=== PATIENT | female | born 1975 | race Caucasian/White ===

== ENCOUNTER → 2019-03-21 | Outpatient (CLI) | payer OTHER ==
--- NOTE | 2019-03-22 13:24 | MM ---
Reason for exam: screening (asymptomatic). Last mammogram was performed 8 years and 11 months ago. History: Saline implants in both breasts, 2007. Took hormonal contraceptives for 6 months beginning at age 35. Physical Findings: A clinical breast exam by your physician is recommended on an annual basis and results should be correlated with mammographic findings. MG 3D Screen Mammo Imp/Cad Bilateral CC, MLO, and ID view(s) were taken. Prior study comparison: May 01, 2010, CAD bilateral diagnostic mammogram. The breast tissue is extremely dense which could obscure a lesion on mammography. No suspicious abnormality. Bilateral saline implants noted. No significant changes when compared with prior studies. ASSESSMENT: Negative, BI-RAD 1 RECOMMENDATION: Routine screening mammogram of both breasts in 1 year.
== END | disposition home or self-care (01) ==
LOC: RADMAMWWP 13:05
PROVIDERS: ATTEND Obstetrics & Gynecology
DX: Z12.31 Encounter for screening mammogram for malignant neoplasm of breast (principal)
CPT/HCPCS: 77063; 77067

== ENCOUNTER 2019-04-18 06:38 | Emergency (ER) | payer OTHER ==
[2019-04-18] MEDS ORDERED: ASPIRIN 81 MG PO STA (06:47)
[2019-04-18] MEDS ORDERED: KETOROLAC 30 MG/ML 1 ML VIAL IVP STA (07:00)
--- NOTE | 2019-04-18 07:02 | ED ---
Chest Pain HPI - General Chief Complaint: Chest Pain Stated Complaint: Chest pain/Left shoulder pain Time Seen by Provider: 04/18/19 06:46 Source: patient, RN notes reviewed Mode of arrival: ambulatory Limitations: no limitations - History of Present Illness Initial Comments: 44-year-old female presents emergency Department chief complaint of left should er left arm and left-sided chest pain. She does admit that she's had left-sided arm pain and shoulder pain for last 10-14 days. Patient states though earlier this morning/late last night she's developed sided chest pain. She states that she cannot get comfortable. She had a pressure on her left-sided chest and some sharp stabbing type pain. Patient denies any significant cardiac history. Pat ient denies any history of hypertension, hyperlipidemia, diabetes. Patient denies any known trauma. - Related Data Home Medications Medication Instructions Recorded Confirmed Biotin 5 mg PO DAILY 04/18/19 04/18/19 Previous Rx's Medication Instructions Recorded Cyclobenzaprine [Flexeril] 5 mg PO TID PRN #15 tablet 04/18/19 Allergies Allergy/AdvReac Type Severity Reaction Status Date / Time No Known Allergies Allergy Verified 04/18/19 08:11 Review of Systems ROS Statement: Those systems with pertinent positive or pertinent negative responses have been documented in the HPI. ROS Other: All systems not noted in ROS Statement are negative. EKG Findings - EKG Comments: EKG Findings:: EKG performed at 6:51 sinus bradycardia with short VA rate of 56 VA interval 106 QRS 96 QT/QTC 426/411 Past Medical History Past Medical History: No Reported History Additional Past Medical History / Comment(s): Patient has a history of IBS, History of Any Multi-Drug Resistant Organisms: None Reported Past Surgical History: Appendectomy Additional Past Surgical History / Comment(s): BREAST AUGMENTATION, REPAIR OF FRACTURE RIGHT ORBITAL, D&C for elective . Past Anesthesia/Blood Transfusion Reactions: No Reported Reaction Past Psychological History: No Psychological Hx Reported Smoking Status: Former smoker Past Alcohol Use History: Rare Past Drug Use History: None Reported - Past Family History Father Family Medical History: No Reported History General Exam Limitations: no limitations General appearance: alert, in no apparent distress Head exam: Present: atraumatic, normocephalic, normal inspection Eye exam: Present: normal appearance, PERRL, EOMI. Absent: scleral icterus, conjunctival injection, periorbital swelling ENT exam: Present: normal exam, normal oropharynx, mucous membranes moist Neck exam: Present: normal inspection, full ROM. Absent: tenderness, meningismus, lymphadenopathy Respiratory exam: Present: normal lung sounds bilaterally. Absent: respiratory distress, wheezes, rales, rhonchi, stridor, chest wall tenderness Cardiovascular Exam: Present: regular rate, normal rhythm, normal heart sounds. Absent: systolic murmur, diastolic murmur, rubs, gallop, clicks GI/Abdominal exam: Present: soft, normal bowel sounds. Absent: distended, tenderness, guarding, rebound, rigid Extremities exam: Present: other (Tenderness on the left scapula, neurovascular intact upper extremities and lower extremities) Neurological exam: Present: alert, oriented X3, CN II-XII intact Skin exam: Present: warm, dry, intact, normal color. Absent: rash Course Vital Signs 04/18/19 04/18/19 04/18/19 06:43 06:56 08:19 Temperature 98.0 F Pulse Rate 60 60 Pulse Rate [ 62 Devulcanizer Tender ] Respiratory 18 16 Rate Blood Pressure 112/59 110/68 O2 Sat by Pulse 100 98 Oximetry Chest Pain MDM - MDM Labs, EKG and chest x-ray unremarkable. This is reproducible pain this time. 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 Her chest pain is not pleuritic or cardiac in nature at this time. Patient did state that she had improvement with Norflex. Patient discharged at this time with follow-up.Return parameters were discussed. Disposition Clinical Impression: Strain of muscle(s) and tendon(s) of the rotator cuff of left shoulder, initial encounter, Atypical chest pain Disposition: HOME SELF-CARE Condition: Stable Instructions (If sedation given, give patient instructions): Chest Wall Pain (ED), Shoulder Pain (ED) Additional Instructions: Please return to the Emergency Department if symptoms worsen or any other concerns. Prescriptions: Cyclobenzaprine [Flexeril] 5 mg PO TID PRN #15 tablet PRN Reason: Muscle Spasm Is patient prescribed a controlled substance at d/c from ED?: No Referrals: None,Stated [Primary Care Provider] - 1-2 days Sg Brown MD [STAFF PHYSICIAN] - 1-2 days Time of Disposition: 08:48
[2019-04-18 07:08] LABS: Basophils % (A) 1 %; Eosinophils # (A) 0.1 k/uL (0-0.7); Eosinophils % (A) 2 %; HCT 38.1 % (34.0-46.0); Lymphocytes # (A) 1.9 k/uL (1.0-4.8); Lymphocytes % (A) 30 %; MCH 32.6 pg (25.0-35.0); MCHC 34.2 g/dL (31.0-37.0); MCV 95.3 fL (80.0-100.0); Mean Platelet Volume 7.2; Monocytes # (A) 0.4 k/uL (0-1.0); Monocytes % (A) 7 %; Neutrophils # (A) 3.5 k/uL (1.3-7.7); Neutrophils % (A) 58 %; Platelet Count 266 k/uL (150-450); RDW 11.5 % (11.5-15.5); WBC 6.1 k/uL (3.8-10.6)
[2019-04-18 07:17] LABS: ALT 9 U/L (4-34); AST 20 U/L (14-36); African American GFR (CKD) >90 (>60 ml/min/1.73 sqM); Albumin 3.8 g/dL (3.5-5.0); Alkaline Phosphatase 41 U/L (38-126); Anion Gap 7 mmol/L; Blood Urea Nitrogen 13 mg/dL (7-17); Calcium 8.9 mg/dL (8.4-10.2); Carbon Dioxide 27 mmol/L (22-30); Chloride 106 mmol/L (98-107); Glucose 91 mg/dL (74-99); Magnesium 2.2 mg/dL (1.6-2.3); Non-African American GFR(CKD) >90 (>60 ml/min/1.73 sqM); Potassium 3.9 mmol/L (3.5-5.1); Sodium 140 mmol/L (137-145); Total Bilirubin 0.4 mg/dL (0.2-1.3); Total Protein 6.4 g/dL (6.3-8.2)
[2019-04-18 07:47] LABS: Partial Thromboplastin Time 23.8 sec (22.0-30.0)
[2019-04-18] MEDS ORDERED: ORPHENADRINE 30 MG/ML 2 ML VIAL IVP STA (07:48)
--- NOTE | 2019-04-18 07:49 | XR ---
EXAMINATION TYPE: XR chest 2V DATE OF EXAM: 04/18/2019 COMPARISON: NONE HISTORY: Chest pain and pressure. TECHNIQUE: Frontal and lateral views of the chest are obtained. FINDINGS: There is chronic parenchymal changes without suspicious focal air space opacity, pleural e ffusion, or pneumothorax seen. The cardiac silhouette size is within normal limits. The osseous st ructures are intact. Slight asymmetry to breast shadows smaller on the right is noted. IMPRESSION: No acute process.
[2019-04-18 08:20] VITALS: BP 110/68; PULSE 60; RESP 16
[2019-04-18 08:59] VITALS: TEMP 98.7
== END 2019-04-18 08:58 | disposition home or self-care (01) ==
LOC: EC 06:38
DX: S46.912A Strain of unspecified muscle, fascia and tendon at shoulder and upper arm level, left arm, initial encounter (principal); R07.89 Other chest pain; Z87.891 Personal history of nicotine dependence; X58.XXXA Exposure to other specified factors, initial encounter
CPT/HCPCS: 36415; 93005; 80053; 83690; 83735; 84484; 85025; 85610; 85730; 71046; 99285; 96374; 96375; J2360; J1885

== ENCOUNTER → 2020-06-30 | Outpatient (CLI) | payer OTHER ==
--- NOTE | 2020-07-02 14:13 | MM ---
Reason for exam: screening (asymptomatic). Last mammogram was performed 1 year and 3 months ago. History: Saline implants in both breasts, 2008. Took hormonal contraceptives for 6 months beginning at age 35. Physical Findings: A clinical breast exam by your physician is recommended on an annual basis and results should be correlated with mammographic findings. MG 3D Screen Mammo Imp/Cad Bilateral CC, MLO, and ID view(s) were taken. Prior study comparison: March 21, 2019, bilateral MG 3d screen mammo imp/cad. May 01, 2010, CAD bilateral diagnostic mammogram. The breast tissue is extremely dense which could obscure a lesion on mammography. Bilateral breast prothesis. No significant changes when compared with prior studies. ASSESSMENT: Benign, BI-RAD 2 RECOMMENDATION: Routine screening mammogram of both breasts in 1 year.
== END | disposition home or self-care (01) ==
LOC: RADMAMWWP 16:18
PROVIDERS: ATTEND Obstetrics & Gynecology
DX: Z12.31 Encounter for screening mammogram for malignant neoplasm of breast (principal)
CPT/HCPCS: 77063; 77067

== ENCOUNTER → 2020-11-12 | Outpatient (CLI) | payer OTHER ==
[2020-11-13 17:07] LABS: Ferritin 54.7 ng/mL (10.0-291.0)
== END | disposition home or self-care (01) ==
LOC: LABWHC1 16:01
PROVIDERS: ATTEND Dermatology MOHS-Micrographic Surgery
DX: L65.0 Telogen effluvium (principal); L65.8 Other specified nonscarring hair loss
CPT/HCPCS: 36415; 82306; 82728

== ENCOUNTER → 2021-08-06 | Outpatient (CLI) | payer OTHER ==
--- NOTE | 2021-08-06 07:57 | US ---
EXAMINATION TYPE: US gallbladder DATE OF EXAM: 08/06/2021 COMPARISON: Prior limited abdomen ultrasound November 12, 2009 CLINICAL HISTORY: R10.13 EPIGASTRIC PAIN. Pain EXAM MEASUREMENTS: Liver Length: 13.3 cm Gallbladder Wall: .2 cm CBD: .4 cm Right Kidney: 9.9 x 4.0 x 4.7 cm Pancreas: wnl Liver: wnl Gallbladder: wnl Evidence for sonographic Eaton's sign: No CBD: wnl Right Kidney: wnl Visualized pancreas shows no worrisome mass or ductal dilatation. The visualized aorta shows no aneur ysm. IVC patent near the hepatic dome. Visualized liver within normal limits. No right-sided hydronep hrosis. No gallstones noted. IMPRESSION: Unremarkable study. No significant change from prior.
== END | disposition home or self-care (01) ==
LOC: RADUSWWP 07:26
PROVIDERS: ATTEND Internal Medicine
DX: R10.13 Epigastric pain (principal)
CPT/HCPCS: 76705

== ENCOUNTER → 2021-11-11 | Outpatient (CLI) | payer OTHER ==
--- NOTE | 2021-11-12 09:16 | MM ---
Reason for Exam: Screening (asymptomatic). Last mammogram was performed 1 year(s) and 5 month(s) ago. Patient History: Menarche at age 13. First Full-Term at age 23. Patient has history of breast feeding. Hormonal Contraceptives for 6 months from age 35 until age 35. 2008, Bilateral Implants. Last menstrual period: 11/05/2021 Risk Values: Génesis 5 year model risk: 0.8%. NCI Lifetime model risk: 8.5%. Prior Study Comparison: 05/01/2010 Bilateral Diagnostic Mammogram, [facility]. 03/21/2019 Bilateral Screening Mammogram, [facility]. 06/30/2020 Bilateral Screening Mammogram, [facility]. Tissue Density: The breast tissue is heterogeneously dense. This may lower the sensitivity of mammography. Findings: Analyzed By CAD. Bilateral breast implants, implants appear intact. There is no suspicious group of microcalcifications or new suspicious mass in either breast. Overall Assessment: Negative, BI-RAD 1 Management: Screening Mammogram of both breasts in 1 year. A clinical breast exam by your physician is recommended on an annual basis and results should be correlated with mammographic findings. Electronically signed and approved by: Misbah Lyons DO
== END | disposition home or self-care (01) ==
LOC: RADMAMWWP 08:55
PROVIDERS: ATTEND Obstetrics & Gynecology
DX: Z12.31 Encounter for screening mammogram for malignant neoplasm of breast (principal)
CPT/HCPCS: 77063; 77067

== ENCOUNTER → 2022-09-01 | Outpatient (CLI) | payer OTHER ==
--- NOTE | 2022-09-01 07:58 | MM ---
Reason for Exam: Clinical finding. Last screening mammogram was performed 9 month(s) ago. Indicated Problems: Pain of the left side (Focal) for 3 Week(s) : 4-6 oclock. Lump or thickening of the left side (size 3) for 3 Week(s). Patient History: Menarche at age 13. First Full-Term at age 23. Patient has history of breast feeding. Hormonal Contraceptives for 6 months from age 35 until age 35. 2008, Bilateral Implants. Last menstrual period: 08/18/2022 Risk Values: Génesis 5 year model risk: 0.8%. NCI Lifetime model risk: 8.4%. Prior Study Comparison: 05/01/2010 Bilateral Diagnostic Mammogram, [facility]. 05/01/2010 Left Diagnostic Ultrasound, [facility]. 03/21/2019 Bilateral Screening Mammogram, [facility]. 06/30/2020 Bilateral Screening Mammogram, [facility]. 11/11/2021 Bilateral MG 3D screen mammo imp/cad., [facility]. Tissue Density: The breast tissue is extremely dense which could obscure a lesion on mammography. Findings: Analyzed By CAD. Bilateral retropectoral saline implants. Palpable marker placed just below the left nipple. On the CC view, there is an area of asymmetric density which incompletely disperses on 3-D images. No definite corresponding abnormality on the MLO or 3-D lateral views. Otherwise, no significant change. Overall Assessment: Incomplete: need additional imaging evaluation, BI-RAD 0 Management: Diagnostic Breast Ultrasound of the left breast. Electronically signed and approved by: Joselin Ha M.D. Radiologist
--- NOTE | 2022-09-01 08:21 | USB ---
Reason for Exam: Clinical finding. Patient History: Menarche at age 13. First Full-Term at age 23. Patient has history of breast feeding. Hormonal Contraceptives for 6 months from age 35 until age 35. 2008, Bilateral Implants. Risk Values: Génesis 5 year model risk: 0.8%. NCI Lifetime model risk: 8.4%. Technique: Method: Whole Breast Handheld. Prior Study Comparison: 03/21/2019 Bilateral Screening Mammogram, [facility]. 06/30/2020 Bilateral Screening Mammogram, [facility]. 11/11/2021 Bilateral MG 3D screen mammo imp/cad., [facility]. Findings: The whole breast of the left breast, the axilla of the left breast and the retroareolar of the left breast were scanned. A complete US of all four quadrants of the breast , axilla, and retro-areolar region were reviewed. No solid or cystic masses are identified. Underlying breast implants are noted. No axillary lymphadenopathy or duct ectasia. No abnormality at the patient's 6:00 palpable site. Overall Assessment: Probably benign, BI-RAD 3 Management: Diagnostic Mammogram of the left breast in 6 months. Also, further clinical management of any suspicious palpable abnormalities. Patient should continue monthly self breast exams and these results should not preclude additional follow-up of suspicious palpable abnormalities. Results were given to the patient verbally at the time of exam. Electronically signed and approved by: Joselin Ha M.D. Radiologist
== END | disposition home or self-care (01) ==
LOC: RADMAMWWP 07:02
PROVIDERS: ATTEND Obstetrics & Gynecology
DX: N63.20 Unspecified lump in the left breast, unspecified quadrant (principal); N64.4 Mastodynia
CPT/HCPCS: 77062; 77066

== ENCOUNTER → 2023-03-21 | Outpatient (CLI) | payer OTHER ==
--- NOTE | 2023-03-21 07:32 | MM ---
Reason for Exam: Follow-up at short interval from prior study. Last screening mammogram was performed 7 month(s) ago. Patient History: Menarche at age 13. First Full-Term at age 23. Patient has history of breast feeding. Hormonal Contraceptives for 6 months from age 35 until age 35. 2008, Bilateral Implants. Risk Values: Génesis 5 year model risk: 0.8%. NCI Lifetime model risk: 8.4%. Prior Study Comparison: 06/30/2020 Bilateral Screening Mammogram, [facility]. 11/11/2021 Bilateral MG 3D screen mammo imp/cad., [facility]. 09/01/2022 Bilateral MG 3D diag mammo imp w/cad PAM, [facility]. Tissue Density: Left: The breast tissue is heterogeneously dense. This may lower the sensitivity of mammography. Findings: Analyzed By CAD. Pattern appears stable. No suspicious retroareolar abnormality. No suspicious groups of microcalcifications, spiculated or lobular masses, architectural distortion or other secondary signs of malignancy are mammographically apparent. Overall Assessment: Benign, BI-RAD 2 Management: Screening Mammogram of both breasts in 6 months. A negative mammogram report should not preclude additional follow up of suspicious palpable abnormalities. Patient should continue monthly self breast exam. A clinical breast exam by your physician is recommended on an annual basis and results should be correlated with mammographic findings. Electronically signed and approved by: Ehsan Aragon D.O. Radiologis
== END | disposition home or self-care (01) ==
LOC: RADMAMWWP 07:07
PROVIDERS: ATTEND Obstetrics & Gynecology
DX: R92.332 Mammographic heterogeneous density, left breast (principal); Z98.82 Breast implant status
CPT/HCPCS: 77061; 77065

== ENCOUNTER 2023-09-06 11:26 | Day surgery (SDC) | payer OTHER ==
[2023-09-05 13:24] VITALS: BMI 20.1
[2023-09-06 13:04] VITALS: RESP 16; TEMP 97.6
[2023-09-06] MEDS: LIDOCAINE 1% (10MG/ML) FOR IV START INTRADERMA PRN (13:12)
[2023-09-06] MEDS: LACTATED RINGERS 1,000 ML BAG IV STA (13:15)
[2023-09-06] MEDS: IV FLUID CONTINUATION 1,000 ML IV ONE (13:18)
[2023-09-06] MEDS ORDERED: PROPOFOL 10 MG/ML 20 ML VIAL IV ONE (13:36)
--- NOTE | 2023-09-06 13:50 | P.PCN ---
Date of Procedure: 09/06/23 Procedure(s) Performed: BRIEF HISTORY: Patient is a 48-year-old pleasant white female scheduled for an elective colonoscopy as a part of screening for colon cancer. PROCEDURE PERFORMED: Colonoscopy. PREOPERATIVE DIAGNOSIS: Screening for colon cancer. IV sedation per Anesthesia. PROCEDURE: After informed consent was obtained, the patient, was brought into the endoscopy unit. IV sedation was administered by Anesthesia under continuous monitoring. Digital rectal examination was normal. Initially the Olympus CF-160 flexible video colonoscope was then inserted in the rectum, gradually advanced into the cecum without any difficulty. Careful examination was performed as the scope was gradually being withdrawn. Ileocecal valve and the appendiceal orifice were visualized and appeared normal. Prep was excellent. Mucosa of the cecum, ascending colon, transverse colon, descending colon, sigmoid colon, and rectum appeared normal. Scattered sigmoid diverticulosis. Retroflexion was performed in the rectum and no lesions were seen. The patient tolerated the procedure well. IMPRESSION: Normal-appearing colon from rectum to cecum with no evidence of colorectal neoplasia. Scattered sigmoid diverticulosis. RECOMMENDATIONS: Findings of this examination were discussed with the patient as well as her family. She was advised to have repeat screening colonoscopy in 10 years..
[2023-09-06 14:24] VITALS: BP 95/62; PULSE 65
== END 2023-09-06 14:30 | disposition home or self-care (01) ==
LOC: ORWHC2ENDO 11:26
PROVIDERS: ATTEND Internal Medicine Gastroenterology
DX: Z12.11 Encounter for screening for malignant neoplasm of colon (principal); K57.30 Diverticulosis of large intestine without perforation or abscess without bleeding; K58.9 Irritable bowel syndrome, unspecified; Z79.899 Other long term (current) drug therapy; Z87.891 Personal history of nicotine dependence
CPT/HCPCS: 81025; 45378; J2704

== ENCOUNTER → 2024-04-11 | Outpatient (CLI) | payer OTHER ==
--- NOTE | 2024-04-11 10:27 | MM ---
Reason for Exam: Hx of breast augmentation, asymptomatic. Last mammogram was performed 1 year(s) and 8 month(s) ago. Patient History: Menarche at age 13. First Full-Term at age 23. Premenopausal. Patient has history of breast feeding. Hormonal Contraceptives for 6 months from age 35 until age 35. 2008, Bilateral Implants. Last menstrual period: 03/10/2024 Risk Values: Génesis 5 year model risk: 0.8%. NCI Lifetime model risk: 8.2%. Prior Study Comparison: 11/11/2021 Bilateral MG 3D screen mammo imp/cad., [facility]. 09/01/2022 Bilateral MG 3D diag mammo imp w/cad [facility], [facility]. 03/21/2023 Left MG 3D diag mammo imp w/cad LT, [facility]. Tissue Density: The breasts are heterogeneously dense, which may obscure small masses. Findings: Analyzed By CAD. Bilateral breast implants appear intact. Right breast: There is no suspicious group of microcalcifications or new suspicious mass. Left breast: There is no suspicious group of microcalcifications or new suspicious mass. Overall Assessment: Negative, BI-RAD 1 Management: Screening Mammogram of both breasts in [address] [facility] will attempt to contact patient to return for supplemental views and ultrasound if indicated. Patient should continue monthly self-breast exams. A clinical breast exam by your physician is recommended on an annual basis. This exam should not preclude additional follow-up of suspicious palpable abnormalities. Note on Génesis scores and lifetime risk: 1. A Génesis score greater than 3% is considered moderate risk. If this is the case, consider specialist referral to assess eligibility for a risk reducing agent. 2. If overall lifetime risk for the development of breast cancer is 20% or higher, the patient may qualify for future screening with alternating mammogram and breast MRI. [facility], , 04/11/2024 10:24 AM. Electronically signed and approved by: Misbah Lyons DO
== END | disposition home or self-care (01) ==
LOC: RADMAMWWP 09:45
PROVIDERS: ATTEND Obstetrics & Gynecology Obstetrics
DX: Z12.31 Encounter for screening mammogram for malignant neoplasm of breast (principal); R92.333 Mammographic heterogeneous density, bilateral breasts
CPT/HCPCS: 77063; 77067